=== PATIENT | male | born 1985 | race Caucasian/White ===

== ENCOUNTER 2017-05-06 07:20 | Emergency (ER) | payer OTHER ==
[2017-05-06 07:30] VITALS: BP 120/73
[2017-05-06] MEDS ORDERED: Tetracaine 0.5% OPTH.SOL 4 ML* 1 DROP BTL LEFT EYE ONE (07:36)
[2017-05-06] MEDS ORDERED: Fluorescein Sodium TOPICAL* 1 MG TEST OPHTHALMIC ONE (07:37)
[2017-05-06] MEDS ORDERED: BSS OPTH.SOL* BTL OPHTHALMIC ONE (07:38)
--- NOTE | 2017-05-06 13:34 | UC ---
Irlanda Edward Alfonso, scribed for Lai Murray MD on 05/06/17 at 0734 . Eye Complaint HPI - HPI Summary HPI Summary: This patient is a 31 year old male presenting to [facility] c/o a scratch in his left eye since 1599 yesterday. Pt works as a irrigation laborer and reports a steel fragment may have got into his left eye while grinding metal with glasses on. He states this has happened in the past in his right eye. He rates the pain 3/ 10 in severity. Sx aggravated by blinking and alleviated by nothing. Pt reports left eye irritation. Pt denies photophobia and vision impairment in both eyes. - History of Current Complaint Chief Complaint: UCEye Stated Complaint: foreign body in eye Hx Obtained From: Patient Onset/Duration: Sudden Onset, Lasting Days - 1599 yesterday, Still Present Timing: Constant Severity Initially: Moderate Severity Currently: Moderate Pain Intensity: 3 Pain Scale Used: 0-10 Numeric Location of Injury: Conjunctiva Character: Foreign Body Sensation Aggravating Factor(s): Blinking Alleviating Factor(s): Nothing Associated Signs And Symptoms: Negative: Photophobia, Vision Impairment Right, Vision Impairment Left - Allergies/Home Medications Allergies/Adverse Reactions: Allergies Allergy/AdvReac Type Severity Reaction Status Date / Time No Known Allergies Allergy Verified 08/10/12 16:54 PMH/Surg Hx/FS Hx/Imm Hx - Surgical History Surgical History: Yes Surgery Procedure, Year, and Place: kidney surgery - Family History Known Family History: Negative: Seizure Disorder - Social History Alcohol Use: Weekly Substance Use Type: None Smoking Status (MU): Light Every Day Tobacco Smoker - Immunization History Most Recent Tetanus Shot: 2010 Review of Systems Eyes: Other - Positive "scratch" on left eye and left eye irritation; negative photophobia and vision impairment All Other Systems Reviewed And Are Negative: Yes Physical Exam Triage Information Reviewed: Yes Vital Signs: Initial Vital Signs Temp 97 F 05/06/17 07:27 Pulse 76 05/06/17 07:27 Resp 16 05/06/17 07:27 BP 120/73 05/06/17 07:27 Pulse Ox 100 05/06/17 07:27 Vital Signs Reviewed: Yes - Additional Comments The patient is well-nourished in no acute distress and in no acute pain. The skin is warm and dry and skin color reflects adequate perfusion. HEENT: The head is normocephalic and atraumatic. The pupils are equal and reactive. EOMI. Left eye edema on the eye lid. Narcotized with 2 drops of tetracaine. Fluorescein instilled in eye. Increased Fluorescein uptake at 5 and 7 oclock on inferior portion of corneal and scleral medial aspect. Corneal and scleral scratch. No foreign body in eye. Anterior chamber clear. Nares are patent and without drainage. Mouth reveals moist mucous membranes and the throat is without erythema and exudate. The external ears are intact. The ear canals are patent and without drainage. The tympanic membranes are intact. Neck is supple with full range of motion and non-tender. There are no carotid bruits. There is no neck vein distension. Respiratory: Chest is non-tender. Lungs are clear to auscultation and breath sounds are symmetrical and equal. Cardiovascular: Heart is regular rate and rhythm. There is no murmur or rub auscultated. There is no peripheral edema and pulses are symmetrical and equal. Neurological: Patient is alert and oriented to person, place and time. Psychiatric: The patient has an appropriate affect and does not exhibit any anxiety or depression. Eye Complaint Course/Dx - Course Course Of Treatment: A 31-year-old M presents to [facility] with a CC of a scratch in his left eye since 1600 yesterday. Pt reports left eye irritation. Pt denies photophobia and vision impairment in both eyes. We noted left eye lid edema. Narcotized the left eye with 2 drops of tetracaine. Fluorescein instilled in eye. Increased Fluorescein uptake at 5 and 7 oclock on inferior portion of corneal and scleral medial aspect. Corneal and scleral scratch. No foreign body in eye. Anterior chamber clear. Patient will be discharged with follow up from PCP. Pt is agreeable with this plan. - Differential Dx/Diagnosis Differential Diagnosis/HQI/PQRI: Corneal Abrasion, Foreign Body Provider Diagnoses: left eye corneal abrasion and scleral abrasion Discharge - Discharge Plan Condition: Stable Disposition: HOME Prescriptions: Gentamicin 0.3% OPTH.OINT* 1 applic .SEE ORDER TID #1 oint Patient Education Materials: Corneal Abrasion (ED) Referrals: [facility] [place] [facility] REFERRAL [Outside] Urbano Reynaga MD [Medical Doctor] - 1 Day The documentation as recorded by the Irlanda reich Alfonso accurately reflects the service I personally performed and the decisions made by me, Lai Murray MD.
== END 2017-05-06 09:09 | disposition home or self-care (01) ==
LOC: UCEAST 07:20
DX: S05.02XA Injury of conjunctiva and corneal abrasion without foreign body, left eye, initial encounter (principal); S05.8X2A Other injuries of left eye and orbit, initial encounter; Z72.0 Tobacco use
CPT/HCPCS: 99202; A9270-GY; G0463